=== PATIENT | male | born 1955 | race Caucasian/White ===

== ENCOUNTER → 2020-09-30 | Outpatient (CLI) | payer MEDICARE ==
[~2020-09-30] MED LIST: AMLO-186 PO; LEVO100T5 PO; LISI10TA2 PO
== END ==
LOC: LAB 15:04
PROVIDERS: ATTEND Internal Medicine Gastroenterology
DX: Z01.812 Encounter for preprocedural laboratory examination (principal); Z20.828 Contact with and (suspected) exposure to other viral communicable diseases; D50.9 Iron deficiency anemia, unspecified
CPT/HCPCS: U0003

== ENCOUNTER → 2020-10-03 | Day surgery (SDC) | payer MEDICARE ==
[~2020-10-03] MED LIST changes: +IV RINGERS,LACTATED 1000ML 1,000 ML IV SCH; +LIDOCAINE 1% PF 2 ML VIAL. ID PRN; +LIDOCAINE 2% PF 5 ML VIAL. ONE; +MIDAZOLAM HCL/PF 2 MG/2 ML VIAL. IV PRN; +PROPOFOL 10 MG/ML (20ML) VIAL. IV ONE; +fentaNYL PF VIAL 100 MCG/2 ML VIAL IV PRN
--- NOTE | 2020-10-03 13:32 | PDOC4 ---
PROCEDURE Procedure EGD with biopsies/colonoscopy. Indication: KOLE Meds: per anesthesia. Findings: E--Grade A esophagitis at 40cm. G--Mild, striped, antral erythema, biopsied. D--Normal to second portion, biopsies. SERA--Normal --"Scope advanced to TI. Mucosa normal throughout, including TI. Multiple diverticula, sigmoid. No polyps, masses, etc. Small internal hemorrhoids. Kiara. well. IMP: Asymptomatic reflux, mild. Diverticulosis. Hemorrhoids. REC: Resume diet, meds as pre-procedure. Await path. F/u with me in 2 weeks. CHERYL HERNANDEZ MD Oct 03, 2020 13:32
[2020-10-03 13:49] VITALS: BP 123/81
--- NOTE | 2020-10-04 22:19 | PATHOLOGY ---
[facility] Accession Number: [id number] . 01 Material submitted: . PART A: duodenum - DUODENAL BIOPSY PART B: stomach - ANTRUM BIOPSY . 01 Clinical history: . ANEMIA . 02 Diagnosis: A. "Duodenal BX", biopsy: - Small bowel/duodenal mucosa with mild reactive changes and mild duodenitis; no evidence of celiac sprue. . B. "Antrum BX", biopsy: - Gastric antral type mucosa with mild reactive changes and mild chronic inflammation. - Negative H. pylori immunohistochemical stain (block B1); control reacted appropriately. . (CLW:laura; 10/04/2020) R 10/04/2020 1110 Local . 02 Electronically signed: . Genevieve Corbett MD, Pathologist NPI- [id number] . 01 Gross description: . A. The specimen is received in formalin, labeled "Chirstopher Huong, duodenal biopsy". Received are four segments of pale keys soft tissue ranging in size from 0.1 to 0.3 cm in maximum dimensions. The specimen is submitted entirely in cassette A1. . B. The specimen is received in formalin, labeled "Christopher Huong, antrum biopsy". Received are three segments of pale keys soft tissue ranging in size from 0.2 to 0.4 cm in maximum dimensions. The specimen is submitted entirely in cassette B1. ([facility]; 10/03/2020) QAC/QA 10/03/2020 1740 Local . 02 Pathologist provided ICD-10: K29.80, K29.50 . 02 CPT . 230250, [id number], [id number] Specimen Comment: A courtesy copy of this report has been sent to [phone], [phone] Specimen Comment: [id number] Specimen Comment: Report sent to / DR JUDGE Performed at: 01 [facility] [place] [id number] [facility] [address], [place], [place] [id number] MD Santiago Guzman MD Phone: [phone] Performed at: 02 [facility] [address] [place], [place] [id number] MD Sony Villagran MD Phone: [phone]
== END | disposition home or self-care (01) ==
LOC: ENDOS 12:13
PROVIDERS: ATTEND Internal Medicine Gastroenterology
DX: D50.9 Iron deficiency anemia, unspecified (principal); K57.30 Diverticulosis of large intestine without perforation or abscess without bleeding; K64.0 First degree hemorrhoids; K29.80 Duodenitis without bleeding; K29.50 Unspecified chronic gastritis without bleeding; K31.89 Other diseases of stomach and duodenum; K21.00 Gastro-esophageal reflux disease with esophagitis, without bleeding; E03.9 Hypothyroidism, unspecified; I10 Essential (primary) hypertension; E78.5 Hyperlipidemia, unspecified; J45.909 Unspecified asthma, uncomplicated; Z87.442 Personal history of urinary calculi; Z98.890 Other specified postprocedural states; Z79.899 Other long term (current) drug therapy; Z96.643 Presence of artificial hip joint, bilateral; Z83.3 Family history of diabetes mellitus; Z82.49 Family history of ischemic heart disease and other diseases of the circulatory system; Z82.3 Family history of stroke
CPT/HCPCS: 43239; 45378; 88305; 88342; J2704